=== PATIENT | female | born 1985 ===

== ENCOUNTER 2016-09-28 15:36 | Emergency (ER) | payer OTHER ==
[2016-09-28 16:08] VITALS: O2SAT 97
[2016-09-28] MEDS ORDERED: Sodium Chloride 0.9% 1,000 ML IV ONE (16:18)
--- NOTE | 2016-09-28 16:25 | C.PDOC ---
History Of Present Illness 31 y/o female presents to the ED with complains of fever, diffuse myalgias, chest discomfort, back pain, headache, dry cough, nausea and diarrhea the past 3 days. Pt reports taking Tylenol intermittently with little relief. Pt denies dysuria, vomiting, constipation or any other complaints. Patient's son has been sick at home. LMP 09/02/16. Time Seen by Provider: 09/28/16 16:14 Chief Complaint (Nursing): Fever History Per: Patient History/Exam Limitations: no limitations Onset/Duration Of Symptoms: Days Current Symptoms Are (Timing): Still Present Location Of Pain: Diffuse Myalgias, Headache Sick Contacts (Context): Family Member(s) Associated Symptoms: Fever, Cough, Myalgias, Nausea, Diarrhea. denies: Vomiting Severity: Mild Recent travel outside of the [place]: No Past Medical History Reviewed: Historical Data, Nursing Documentation, Vital Signs Vital Signs: Last Vital Signs Temp 99.8 F H 09/28/16 17:58 Pulse 120 H 09/28/16 16:03 Resp 16 09/28/16 16:03 BP 113/75 09/28/16 16:03 Pulse Ox 97 09/28/16 18:16 Family History: States: Unknown Family Hx - Social History Hx Alcohol Use: No Hx Substance Use: No Review Of Systems Constitutional: Positive for: Fever ENT: Negative for: Ear Pain Cardiovascular: Positive for: Other (chest discomfort) Respiratory: Positive for: Cough (dry). Negative for: Shortness of Breath Gastrointestinal: Positive for: Nausea, Diarrhea. Negative for: Vomiting, Constipation Genitourinary: Negative for: Dysuria Musculoskeletal: Positive for: Back Pain, Other (diffuse myalgias) Neurological: Positive for: Headache Physical Exam - Physical Exam Appears: Non-toxic, No Acute Distress Skin: Warm, Dry, No Rash Head: Atraumatic, Normacephalic Eye(s): bilateral: Normal Inspection, EOMI Ear(s): Bilateral: Normal (no erythema) Nose: Normal Oral Mucosa: Moist Throat: Normal, No Erythema, No Exudate, No Drooling, No Mass Neck: Normal ROM, Supple Chest: Symmetrical Cardiovascular: Rhythm Regular, No Murmur Respiratory: Normal Breath Sounds, No Rales, No Rhonchi, No Wheezing Gastrointestinal/Abdominal: Soft, No Tenderness Extremity: Bilateral: Atraumatic, Normal Color And Temperature, Normal ROM Neurological/Psych: Oriented x3, Normal Speech Gait: Steady ED Course And Treatment - Laboratory Results Result Diagrams: 09/28/16 16:35 09/28/16 16:35 Lab Interpretation: No Acute Changes O2 Sat by Pulse Oximetry: 97 (on room air) Pulse Ox Interpretation: Normal - Radiology CXR: Interpreted by Me, Viewed By Me CXR Interpretation: Yes: No Acute Disease Medical Decision Making Medical Decision Making: Plan: * labs * UA * CXR * motrin * IV fluids Progress: CXR shows no acute disease Labs reviewed, unremarkable UA is negative FLU B POSITIVE Upon reevaluation, fever reduced 99.8F and patient is feeling better. No signs of dehydration, meningitis, or sepsis. Explain results to patient and recommend supportive treatment: fluids, rest, antipyretics. Follow up with primary doctor. Disposition Counseled Patient/Family Regarding: Diagnosis, Need For Followup - Disposition Disposition: HOME/ ROUTINE Disposition Time: 18:16 Condition: IMPROVED Additional Instructions: You have Influenza. Take Tylenol or Motrin alternating every 4-6 hours for Fever 100.4F or higher. Rest and drink plenty of fluids. May use cool mist humidifier or vaporizer in room. Try taking over the counter antihistamine ( Claritin, Susan, Zyrtec), Decongestant or Cough medicine (Mucinex) as needed every 6-8 hours. Follow up with your primary medical doctor or clinic in 1 week for further evaluation. Instructions: Influenza (ED) Forms: Work Excuse - POA Present On Arrival: None - Clinical Impression Clinical Impression: Influenza B - PA / CHEF UNDER / Resident Statement MD/DO has reviewed & agrees with the documentation as recorded. - Scribe Statement The provider has reviewed the documentation as recorded by the Scribsahil Espinosa All medical record entries made by the Rory were at my direction and personally dictated by me. I have reviewed the chart and agree that the record accurately reflects my personal performance of the history, physical exam, medical decision making, and the department course for this patient. I have also personally directed, reviewed, and agree with the discharge instructions and disposition.
[2016-09-28] MEDS ORDERED: Sodium Chloride 0.9% 1,000 ML ONE (16:26)
[2016-09-28 16:38] LABS: BASO % 0.2 % (0.0-2.0); LYMPH # 0.7 K/uL (1.0-4.3); MEAN CELL VOLUME 87.7 fL (81.0-99.0); MEAN CORPUSCULAR HEMOGLOBIN 30.9 pg (27.0-31.0); MEAN CORPUSCULAR HGB CONC 35.2 g/dL (33.0-37.0); MEAN PLATELET VOLUME 9.3 fL (7.2-11.7); MONO # 0.7 K/uL (0.0-0.8); MONO % 8.1 % (0.0-10.0); NRBC % 0.1 % (0.0-2.0); PLATELET COUNT 164 K/uL (130-400); RED CELL DISTRIBUTION WIDTH 13.2 % (11.5-14.5); WHITE BLOOD COUNT 8.3 K/uL (4.8-10.8)
[2016-09-28 16:53] LABS: CHLORIDE 99 mmol/L (98-107)
[2016-09-28 16:54] LABS: POTASSIUM 3.8 mmol/L (3.6-5.2); SODIUM 135 mmol/L (132-148)
[2016-09-28 16:56] LABS: GFR AFRICAN-AMERICAN > 60
[2016-09-28 16:57] LABS: ALB/GLOB RATIO 1.1 (1.0-2.1); ALKALINE PHOSPHATASE 138 U/L (38-126); ALT/SGPT 242 U/L (9-52); AST/SGOT 241 U/L (14-36); BILIRUBIN,TOTAL 0.8 mg/dL (0.2-1.3); BLOOD UREA NITROGEN 10 mg/dL (7-17); CALCIUM 8.5 mg/dl (8.6-10.4); CARBON DIOXIDE 25 mmol/L (22-30); GLUCOSE,RANDOM 107 mg/dL (65-105); TOTAL PROTEIN 8.2 g/dL (6.3-8.3)
[2016-09-28 17:20] LABS: EOSINOPHIL 1 % (0-4); LARGE PLATELETS PRESENT; NEUTROPHIL 78 % (50-75); TOTAL CELLS COUNTED 100
[2016-09-28 17:55] LABS: RBC URINE 1 /hpf (0-3); URINE BACTERIA RARE (<OCC); URINE BILIRUBIN NEGATIVE (NEGATIVE); URINE COLOR Yellow (YELLOW); URINE GLUCOSE (UA) NORMAL (Normal); URINE KETONE NEGATIVE (NEGATIVE); URINE LEUKOCYTE ESTERASE TRACE Leu/uL (Negative); URINE PROTEIN NEGATIVE (NEGATIVE); WBC URINE 6 /hpf (0-5)
[2016-09-28 17:56] LABS: URINE BLOOD NEGATIVE (NEGATIVE)
[2016-09-28 17:58] VITALS: TEMP 99.8
[2016-09-28 18:23] VITALS: BP 95/61; PULSE 105; RESP 20
--- NOTE | 2016-09-29 10:26 | RAD ---
HISTORY: cough, Fever COMPARISON: No prior. TECHNIQUE: Chest PA and lateral FINDINGS: LUNGS: Poor inspiration with low lung volumes, crowded bronchovascular markings and mild bibasilar atelectasis. Developing infiltrates could be excluded with followup radiographs. PLEURA: No significant pleural effusion identified. No pneumothorax apparent. CARDIOVASCULAR: Normal. OSSEOUS STRUCTURES: No significant abnormalities. VISUALIZED UPPER ABDOMEN: Normal. OTHER FINDINGS: None. IMPRESSION: Low lung volumes, mild crowded bronchovascular markings and mild bibasilar atelectasis. . Developing infiltrates could be excluded with followup radiographs.
== END 2016-09-28 18:22 | disposition home or self-care (01) ==
LOC: C.ER 15:36
DX: J11.1 Influenza due to unidentified influenza virus with other respiratory manifestations (principal)
CPT/HCPCS: 71020; 80053; 81001; 84703; 85025; 87804; 96360; 99285; J7040